=== PATIENT | female | born 1985 | race American Indian/Alaskan Native ===

== ENCOUNTER 2019-04-14 13:16 | Emergency (ER) | payer MEDICAID, OTHER ==
--- NOTE | 2019-04-14 13:59 | Event Note ---
ED Screening Note ED Screening Note: pt presents for lower back pain that began two weeks ago states she has it regularly states she bends often at work she denies any injury, trauma, or fall LNMP: march 05, states her cycle is late This initial assessment/diagnostic orders/clinical plan/treatment(s) is/are subject to change based on patients health status, clinical progression and re- assessment by fellow clinical providers in the ED. Further treatment and workup at subsequent clinical providers discretion. Patient/guardian urged not to elope from the ED as their condition may be serious if not clinically assessed and managed. Initial orders include: UA, urine preg
[2019-04-14 14:00] VITALS: BP 129/75
[2019-04-14 14:22] LABS: HCG Qualitative,Urine Negative (Negative)
[2019-04-14 14:28] LABS: Bilirubin,Urine SM (Negative); Blood,Urine MOD (Negative); Color,Urine Amber (Yellow); Mucus,Urine 3+ /HPF
[2019-04-14 15:07] LABS: Ictotest,Urine Negative (Negative)
--- NOTE | 2019-04-14 15:42 | Emergency Department Report ---
ED Back Pain/Injury HPI - General Chief Complaint: Back Pain/Injury Stated Complaint: BACK PAIN Time Seen by Provider: 04/14/19 13:57 Source: patient Limitations: No Limitations - History of Present Illness Initial Comments: Patient is a 34-year-old [place] female presenting with low back pain. Patient states that this is a throbbing sensation. Patient denies any increased pain with movement. Patient states there is been no trauma. Symptoms present for the last 2-3 days. Patient denies being on her menses as well as denies nausea vomiting diarrhea fevers chills cough cold congestion bowel or bladder dysfunction. - Related Data Previous Rx's Medication Instructions Recorded Last Taken Type Azithromycin [Zithromax] 250 mg PO DAILY #6 tablet 08/29/16 Unknown Rx Chlorpheniramine/Phenyleph/Dm [Ed 1 each PO BID #15 tablet 08/29/16 Unknown Rx A-Hist Dm Tablet] Ibuprofen [Motrin 800 MG tab] 800 mg PO Q8HR PRN #10 tablet 04/14/19 Unknown Rx Nitrofurantoin [place]/M-Cryst 100 mg PO Q12HR #14 capsule 04/14/19 Unknown Rx [Macrobid CAP] Allergies Allergy/AdvReac Type Severity Reaction Status Date / Time No Known Allergies Allergy Verified 08/29/16 13:58 ED Review of Systems ROS: Stated complaint: BACK PAIN Other details as noted in HPI Comment: All other systems reviewed and negative ED Past Medical Hx - Past Medical History Previous Medical History?: No Hx Hypertension: Yes - Surgical History Past Surgical History?: Yes Hx Breast Surgery: Yes (CYST REMOVED LEFT BREAST) - Social History Smoking Status: Never Smoker Substance Use Type: None - Medications Home Medications: Home Medications Medication Instructions Recorded Confirmed Last Taken Type Azithromycin [Zithromax] 250 mg PO DAILY #6 tablet 08/29/16 Unknown Rx Chlorpheniramine/Phenyleph/Dm [Ed 1 each PO BID #15 tablet 08/29/16 Unknown Rx A-Hist Dm Tablet] Ibuprofen [Motrin 800 MG tab] 800 mg PO Q8HR PRN #10 tablet 04/14/19 Unknown Rx Nitrofurantoin [place]/M-Cryst 100 mg PO Q12HR #14 capsule 04/14/19 Unknown Rx [Macrobid CAP] ED Physical Exam - General Limitations: No Limitations General appearance: alert, in no apparent distress - Head Head exam: Present: atraumatic, normocephalic - Eye Eye exam: Present: normal appearance, PERRL, EOMI - ENT ENT exam: Present: mucous membranes moist - Neck Neck exam: Present: normal inspection - Respiratory Respiratory exam: Present: normal lung sounds bilaterally. Absent: respiratory distress, wheezes, rales, rhonchi - Cardiovascular Cardiovascular Exam: Present: regular rate, normal rhythm. Absent: systolic murmur, diastolic murmur, rubs, gallop - GI/Abdominal GI/Abdominal exam: Present: soft, normal bowel sounds. Absent: distended, tenderness, guarding, rebound - Extremities Exam Extremities exam: Present: normal inspection - Back Exam Back exam: Present: normal inspection - Neurological Exam Neurological exam: Present: alert, oriented X3 - Psychiatric Psychiatric exam: Present: normal affect, normal mood - Skin Skin exam: Present: warm, dry, intact, normal color. Absent: rash ED Course Vital Signs 04/14/19 13:52 Temperature 98.4 F Pulse Rate 86 Respiratory 18 Rate Blood Pressure 129/75 O2 Sat by Pulse 100 Oximetry ED Medical Decision Making - Lab Data Lab Results 04/14/19 Range/Units 14:09 Urine Color [place] (Yellow) Urine Turbidity Cloudy (Clear) Urine pH 5.0 (5.0-7.0) Ur Specific [place] 1.033 H (1.003-1.030) Urine Protein 30 mg/dl (Negative) mg/dL Urine Glucose (UA) Neg (Negative) mg/dL Urine Ketones Tr (Negative) mg/dL Urine Blood Mod (Negative) Urine Nitrite Neg (Negative) Ur Reducing Substances Not Reportable Urine Bilirubin Sm (Negative) Urine Ictotest Negative (Negative) Urine Urobilinogen 4.0 (<2.0) mg/dL Ur Leukocyte Esterase Tr (Negative) Urine WBC (Auto) 4.0 (0.0-6.0) /HPF Urine RBC (Auto) 10.0 (0.0-6.0) /HPF U Epithel Cells (Auto) 16.0 H (0-13.0) /HPF Urine Mucus 3+ /HPF Urine HCG, Qual Negative (Negative) Critical care attestation.: If time is entered above; I have spent that time in minutes in the direct care of this critically ill patient, excluding procedure time. ED Disposition Clinical Impression: Acute cystitis Qualifiers: Hematuria presence: with hematuria Qualified Code(s): N30.01 - Acute cystitis with hematuria Disposition: TO HOME OR SELFCARE Is pt being admited?: No Does the pt Need Aspirin: No Condition: Stable Instructions: Urinary Tract Infection in Women (ED) Referrals: GIOVANNA ADKINS MD [Primary Care Provider] - 3-5 Days Time of Disposition: 15:42
== END 2019-04-14 16:38 | disposition home or self-care (01) ==
LOC: ED 13:16
DX: N30.01 Acute cystitis with hematuria (principal); I10 Essential (primary) hypertension
CPT/HCPCS: 81001; 81025; 99283

== ENCOUNTER 2021-11-26 21:30 | Emergency (ER) | payer OTHER ==
[2021-11-26] MEDS ORDERED: SODIUM CHLORIDE 0.9% 1000 ML 1,000 ML IV ONE (22:53)
[2021-11-26 23:32] LABS: Basophils # (Auto) 0.1 K/mm3 (0.0-0.1); Basophils % (Auto) 0.6 % (0.0-1.8); Eosinophils % (Auto) 0.1 % (0.0-4.3); Hematocrit 29.9 % (30.3-42.9); Lymphocytes # (Auto) 1.1 K/mm3 (1.2-5.4); Lymphocytes % (Auto) 6.8 % (13.4-35.0); Mean Corpuscular HGB Conc 33 % (30-34); Mean Corpuscular Volume 95 fl (79-97); Monocytes # (Auto) 0.6 K/mm3 (0.0-0.8); Monocytes % (Auto) 3.4 % (0.0-7.3); Platelet Count 281 K/mm3 (140-440); Red Blood Count 3.16 M/mm3 (3.65-5.03); Red Cell Distribution Width 12.6 % (13.2-15.2)
[2021-11-26 23:43] LABS: INR 1.01 (0.87-1.13)
--- NOTE | 2021-11-27 00:44 | Emergency Department Report ---
<SHANNA JONES - Last Filed: 11/27/21 00:57> ED HPI - General Chief complaint: Vaginal Bleeding Stated complaint: SYNCOPE/VAGINAL BLEEDING Time Seen by Provider: 11/26/21 22:12 Source: patient Mode of arrival: Stretcher Limitations: No Limitations - History of Present Illness Initial comments: came in due to syncopal episode secondary to miscarriage. Pt is AAOx4. Hooked pt on the monitor, vital signs stable, respiration even and non labored not in respiratory distress. MD Complaint: vaginal bleeding -: Gradual, hour(s) Severity: mild Quality: cramping Consistency: intermittent Worsens with: none Associated symptoms: syncope Vaginal bleeding: heavy :: No Pre- care: followed by OB - Related Data : 8 Para: 7 Previous Rx's Medication Instructions Recorded Last Taken Type Azithromycin [Zithromax] 250 mg PO DAILY #6 tablet 08/29/16 Unknown Rx Chlorpheniramine/Phenyleph/Dm [Ed 1 each PO BID #15 tablet 08/29/16 Unknown Rx A-Hist Dm Tablet] Ibuprofen [Motrin 800 MG tab] 800 mg PO Q8HR PRN #10 tablet 04/14/19 Unknown Rx Nitrofurantoin [place]/M-Cryst 100 mg PO Q12HR #14 capsule 04/14/19 Unknown Rx [Macrobid CAP] Allergies Allergy/AdvReac Type Severity Reaction Status Date / Time No Known Allergies Allergy Verified 11/26/21 21:51 ED Review of Systems Constitutional: denies: chills, fever Eyes: denies: eye pain, eye discharge, vision change ENT: denies: ear pain, throat pain Respiratory: denies: cough, shortness of breath, wheezing Cardiovascular: denies: chest pain, palpitations Endocrine: no symptoms reported Gastrointestinal: denies: abdominal pain, nausea, diarrhea Genitourinary: denies: urgency, dysuria, discharge Musculoskeletal: denies: back pain, joint swelling, arthralgia Skin: denies: rash, lesions Neurological: denies: headache, weakness, paresthesias Psychiatric: denies: anxiety, depression Hematological/Lymphatic: denies: easy bleeding, easy bruising ED Past Medical Hx - Past Medical History Hx Hypertension: Yes - Surgical History Hx Breast Surgery: Yes (CYST REMOVED LEFT BREAST) - Social History Smoking Status: Never Smoker Substance Use Type: None - Medications Home Medications: Home Medications Medication Instructions Recorded Confirmed Last Taken Type Azithromycin [Zithromax] 250 mg PO DAILY #6 tablet 08/29/16 Unknown Rx Chlorpheniramine/Phenyleph/Dm [Ed 1 each PO BID #15 tablet 08/29/16 Unknown Rx A-Hist Dm Tablet] Ibuprofen [Motrin 800 MG tab] 800 mg PO Q8HR PRN #10 tablet 04/14/19 Unknown Rx Nitrofurantoin [place]/M-Cryst 100 mg PO Q12HR #14 capsule 04/14/19 Unknown Rx [Macrobid CAP] ED Physical Exam - General Limitations: No Limitations General appearance: alert, in no apparent distress - Head Head exam: Present: atraumatic, normocephalic - Eye Eye exam: Present: normal appearance - ENT ENT exam: Present: mucous membranes moist - Neck Neck exam: Present: normal inspection - Respiratory Respiratory exam: Present: normal lung sounds bilaterally. Absent: respiratory distress - Cardiovascular Cardiovascular Exam: Present: regular rate, normal rhythm. Absent: systolic murmur, diastolic murmur, rubs, gallop - GI/Abdominal GI/Abdominal exam: Present: soft, normal bowel sounds - Speculum exam: Present: normal speculum exam, vaginal bleeding, other (little bleeding celaned no active bleeding ) - Extremities Exam Extremities exam: Present: normal inspection - Back Exam Back exam: Present: normal inspection - Neurological Exam Neurological exam: Present: alert, oriented X3 - Psychiatric Psychiatric exam: Present: normal affect, normal mood - Skin Skin exam: Present: warm, dry, intact, normal color. Absent: rash ED Course - Reevaluation(s) Reevaluation #1: 11/27/21 00:44 vss , bleeding controlled ED Medical Decision Making - Lab Data Result diagrams: 11/26/21 22:58 ED Disposition Clinical Impression: Spontaneous miscarriage Disposition: 01 HOME / SELF CARE / HOMELESS Is pt being admited?: No Does the pt Need Aspirin: No Condition: Stable Instructions: Miscarriage, [id number] Referrals: PRIMARY CARE, [Primary Care Provider] - 3-5 Days <JEANNINE SNOWDEN - Last Filed: 11/27/21 02:58> ED Review of Systems ROS: Stated complaint: SYNCOPE/VAGINAL BLEEDING Other details as noted in HPI ED Course Vital Signs 11/26/21 11/26/21 11/26/21 21:50 22:30 22:31 Temperature 97.5 F L Pulse Rate 75 82 Respiratory 18 13 21 Rate Blood Pressure 120/81 Blood Pressure 114/67 [Left] O2 Sat by Pulse 98 100 100 Oximetry 11/26/21 11/26/21 11/26/21 22:45 22:47 23:01 Temperature Pulse Rate 87 89 98 H Respiratory 16 20 18 Rate Blood Pressure 104/69 104/69 108/71 Blood Pressure [Left] O2 Sat by Pulse 100 100 100 Oximetry 11/26/21 11/26/21 11/26/21 23:15 23:31 23:45 Temperature Pulse Rate 89 69 84 Respiratory 22 19 24 Rate Blood Pressure 106/75 115/74 121/80 Blood Pressure [Left] O2 Sat by Pulse 100 100 100 Oximetry 11/27/21 11/27/21 00:01 00:15 Temperature Pulse Rate 72 71 Respiratory 19 19 Rate Blood Pressure 108/40 106/57 Blood Pressure [Left] O2 Sat by Pulse 100 100 Oximetry ED Medical Decision Making - Lab Data Result diagrams: 11/26/21 22:58 - Radiology Data Radiology results: report reviewed - Medical Decision Making Patient remained stable in the ER with stable vital signs. ultrasound showed spontaneous miscarriage in progress. No active bleeding. Patient advised to follow-up with her OB doctor in the next 2 to 3 days and to return to the ER if she develop any new symptoms. Critical care attestation.: If time is entered above; I have spent that time in minutes in the direct care of this critically ill patient, excluding procedure time.
--- NOTE | 2021-11-27 02:49 | Ultrasound Report ---
ULTRASOUND OBSTETRIC INDICATION / CLINICAL INFORMATION: Vaginal bleeding. Serum hCG = 4575. - Clinical Gestational Age (GA) in weeks, days: 8, 2 TECHNIQUE: Transabdominal. COMPARISON: None available. FINDINGS: GESTATIONAL SAC: Fluid collection/possible gestational sac in the lower uterine segment near the cerv ix. Mean sac diameter is 1.97 cm corresponding to 6, 6 weeks, days. YOLK SAC: None visualized. EMBRYO/FETUS: None visualized. ADNEXA: No significant abnormality. FREE FLUID: None. ADDITIONAL FINDINGS: None. IMPRESSION: 1. Fluid collection/possible gestational sac in the lower uterine segment. No yolk sac or embryonic/f etal pole identified. Findings could represent spontaneous in progress. Signer Name: Alexandro Velasquez MD Signed: 11/27/2021 2:45 AM Workstation Name: [id number]
[2021-11-27 03:34] VITALS: BP 121/82
== END 2021-11-27 03:25 | disposition home or self-care (01) ==
LOC: ED 21:30
DX: O03.9 Complete or unspecified spontaneous abortion without complication (principal); I10 Essential (primary) hypertension; Z98.890 Other specified postprocedural states; Z79.899 Other long term (current) drug therapy
CPT/HCPCS: 36415; 76801; 84702; 85025; 85610; 86900; 86901; 96360; 99284; J7030; Q0162

== ENCOUNTER 2022-07-08 21:33 | Emergency (ER) | payer OTHER ==
[2022-07-08 23:18] LABS: Basophils # (Auto) 0.1 K/mm3 (0.0-0.1); Basophils % (Auto) 0.9 % (0.0-1.8); Eosinophils # (Auto) 0.1 K/mm3 (0.0-0.4); Hematocrit 40.3 % (30.3-42.9); Hemoglobin 13.6 gm/dl (10.1-14.3); Lymphocytes # (Auto) 2.4 K/mm3 (1.2-5.4); Mean Corpuscular HGB Conc 34 % (30-34); Mean Corpuscular Volume 92 fl (79-97); Monocytes # (Auto) 0.7 K/mm3 (0.0-0.8); Monocytes % (Auto) 7.4 % (0.0-7.3); Platelet Count 299 K/mm3 (140-440); Red Blood Count 4.38 M/mm3 (3.65-5.03); Red Cell Distribution Width 13.4 % (13.2-15.2)
[2022-07-08 23:32] LABS: Alanine Aminotransferase 11 units/L (7-56); Albumin 4.3 g/dL (3.9-5); BUN/Creatinine Ratio 13; Blood Urea Nitrogen 9 mg/dL (7-17); Calcium 9.4 mg/dL (8.4-10.2); Hemolysis Index 7
--- NOTE | 2022-07-09 00:20 | XRay Report ---
CHEST 2 VIEWS INDICATION / CLINICAL INFORMATION: Chest Pain. FINDINGS: SUPPORT DEVICES: None. HEART / MEDIASTINUM: No significant abnormality. LUNGS / PLEURA: No significant pulmonary or pleural abnormality. No pneumothorax. ADDITIONAL FINDINGS: No significant additional findings. IMPRESSION: 1. No acute findings. Signer Name: Shaw Lawrence MD Signed: 07/09/2022 12:15 AM Workstation Name: [id number]
--- NOTE | 2022-07-09 07:52 | Emergency Department Report ---
ED General Adult HPI - General Chief complaint: Chest Pain Stated complaint: CHEST PAIN PUI?: No Time Seen by Provider: 07/09/22 07:51 Source: patient Mode of arrival: Ambulatory Limitations: No Limitations - History of Present Illness Initial comments: 37 yo comes to er last night from work. co cp. sharp. intermittent. now gone. no n/v/d. no fever or chills. no headache. on exam pain is gone -: Sudden Severity scale (0 -10): 0 Quality: sharp Consistency: intermittent Improves with: none Worsens with: none Associated Symptoms: denies other symptoms Treatments Prior to Arrival: none - Related Data Previous Rx's Medication Instructions Recorded Last Taken Type Azithromycin [Zithromax] 250 mg PO DAILY #6 tablet 08/29/16 Unknown Rx Chlorpheniramine/Phenyleph/Dm [Ed 1 each PO BID #15 tablet 08/29/16 Unknown Rx A-Hist Dm Tablet] Ibuprofen [Motrin 800 MG tab] 800 mg PO Q8HR PRN #10 tablet 04/14/19 Unknown Rx Nitrofurantoin [place]/M-Cryst 100 mg PO Q12HR #14 capsule 04/14/19 Unknown Rx [Macrobid CAP] Ondansetron [Zofran Odt] 4 mg PO Q8HR PRN #14 tab.rapdis 11/27/21 Unknown Rx traMADoL [Ultram 50 MG tab] 50 mg PO Q4HR PRN #14 tablet 11/27/21 Unknown Rx Allergies Allergy/AdvReac Type Severity Reaction Status Date / Time No Known Allergies Allergy Verified 11/26/21 21:51 ED Review of Systems ROS: Stated complaint: CHEST PAIN Other details as noted in HPI Comment: All other systems reviewed and negative ED Past Medical Hx - Past Medical History Previous Medical History?: Yes Hx Hypertension: Yes - Surgical History Past Surgical History?: Yes Hx Breast Surgery: Yes (CYST REMOVED LEFT BREAST) - Family History Family history: no significant - Social History Smoking Status: Never Smoker Substance Use Type: None - Medications Home Medications: Home Medications Medication Instructions Recorded Confirmed Last Taken Type Azithromycin [Zithromax] 250 mg PO DAILY #6 tablet 08/29/16 Unknown Rx Chlorpheniramine/Phenyleph/Dm [Ed 1 each PO BID #15 tablet 08/29/16 Unknown Rx A-Hist Dm Tablet] Ibuprofen [Motrin 800 MG tab] 800 mg PO Q8HR PRN #10 tablet 04/14/19 Unknown Rx Nitrofurantoin [place]/M-Cryst 100 mg PO Q12HR #14 capsule 04/14/19 Unknown Rx [Macrobid CAP] Ondansetron [Zofran Odt] 4 mg PO Q8HR PRN #14 tab.rapdis 11/27/21 Unknown Rx traMADoL [Ultram 50 MG tab] 50 mg PO Q4HR PRN #14 tablet 11/27/21 Unknown Rx ED Physical Exam - General Limitations: No Limitations General appearance: alert, in no apparent distress - Head Head exam: Present: atraumatic, normocephalic - Eye Eye exam: Present: normal appearance - ENT ENT exam: Present: mucous membranes moist - Neck Neck exam: Present: normal inspection - Respiratory Respiratory exam: Present: normal lung sounds bilaterally. Absent: respiratory distress - Cardiovascular Cardiovascular Exam: Present: regular rate, normal rhythm. Absent: systolic murmur, diastolic murmur, rubs, gallop - GI/Abdominal GI/Abdominal exam: Present: soft, normal bowel sounds - Extremities Exam Extremities exam: Present: normal inspection - Back Exam Back exam: Present: normal inspection - Neurological Exam Neurological exam: Present: alert, oriented X3 - Psychiatric Psychiatric exam: Present: normal affect, normal mood - Skin Skin exam: Present: warm, dry, intact, normal color. Absent: rash ED Course Vital Signs 07/08/22 07/08/22 22:19 22:34 Temperature 98.9 F 97.8 F Pulse Rate 82 87 Respiratory 16 16 Rate Blood Pressure 150/89 147/99 O2 Sat by Pulse 99 97 Oximetry ED Medical Decision Making - Lab Data Result diagrams: 07/08/22 22:38 07/08/22 22:38 - EKG Data -: EKG Interpreted by Vt EKG shows normal: sinus rhythm Rate: normal - EKG Data When compared to previous EKG there are: no significant change Interpretation: no acute changes - Radiology Data Radiology results: report reviewed, image reviewed - Medical Decision Making Labs 07/08/22 07/08/22 07/08/22 22:38 22:38 22:38 WBC 8.8 RBC 4.38 Hgb 13.6 Hct 40.3 MCV 92 MCH 31 MCHC 34 RDW 13.4 Plt Count 299 Lymph % (Auto) 27.0 [place] % (Auto) 7.4 H Eos % (Auto) 1.0 Baso % (Auto) 0.9 Lymph # (Auto) 2.4 [place] # (Auto) 0.7 Eos # (Auto) 0.1 Baso # (Auto) 0.1 Seg Neutrophils % 63.7 Seg Neutrophils # 5.6 Sodium 142 Potassium 4.3 Chloride 105.6 Carbon Dioxide 23 Anion Gap 18 BUN 9 Creatinine 0.7 Estimated GFR > 60 BUN/Creatinine Ratio 13 Glucose 93 Calcium 9.4 Total Bilirubin 0.40 AST 14 ALT 11 Alkaline Phosphatase 72 Troponin T Total Protein 6.7 Albumin 4.3 Albumin/Globulin Ratio 1.8 HCG, Qual Negative 07/09/22 01:38 WBC RBC Hgb Hct MCV MCH MCHC RDW Plt Count Lymph % (Auto) [place] % (Auto) Eos % (Auto) Baso % (Auto) Lymph # (Auto) [place] # (Auto) Eos # (Auto) Baso # (Auto) Seg Neutrophils % Seg Neutrophils # Sodium Potassium Chloride Carbon Dioxide Anion Gap BUN Creatinine Estimated GFR BUN/Creatinine Ratio Glucose Calcium Total Bilirubin AST ALT Alkaline Phosphatase Troponin T < 0.010 Total Protein Albumin Albumin/Globulin Ratio HCG, Qual Vital Signs 07/08/22 07/08/22 22:19 22:34 Temperature 98.9 F 97.8 F Pulse Rate 82 87 Respiratory 16 16 Rate Blood Pressure 150/89 147/99 O2 Sat by Pulse 99 97 Oximetry ekg normal xray chest normal labs normal on my exam she was pain free asking for work note dc home with dc plan of care including diet, meds, activity and follow up. she verbalizes understanding of plan of care. - Differential Diagnosis uri/acs Critical care attestation.: If time is entered above; I have spent that time in minutes in the direct care of this critically ill patient, excluding procedure time. ED Disposition Clinical Impression: Atypical chest pain, History of chronic hypertension Disposition: HOME / SELF CARE / HOMELESS Is pt being admited?: No Does the pt Need Aspirin: No Condition: Stable Instructions: Nonspecific Chest Pain, Adult Additional Instructions: follow up with pcp referral below monitor your blood pressure record daily and take to pcp appnt with you low fat/salt diet stay well hydrated motrin or tylenol for pain Referrals: EDILBERTO MCKEON MD [Staff Physician] - 3-5 Days Forms: Work/School Release Form(ED) Time of Disposition: 08:39
[2022-07-09 09:11] VITALS: BP 159/85
--- NOTE | 2022-07-10 13:28 | Electrocardiograph Report ---
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
== END 2022-07-09 09:09 | disposition home or self-care (01) ==
LOC: ED 21:33
DX: R07.9 Chest pain, unspecified (principal); I10 Essential (primary) hypertension
CPT/HCPCS: 36415; 71046; 80053; 84484; 84703; 85025; 93005; 99284